=== PATIENT | male | born 1965 | race Caucasian/White ===

== ENCOUNTER → 2017-04-12 10:00 | Day surgery (SDC) | payer OTHER, SELFPAY ==
[2017-04-11 08:41] VITALS: BMI 32.0
[2017-04-12 10:38] LABS: Hematocrit 37.7 % (40-54); Hemoglobin 11.9 g/dl (13.0-16.5); Mean Corp Hgb Conc 31.6 g/gl (32-36); Mean Corpuscular Hgb 29.8 pg (27.0-32.0); Mean Corpuscular Volume 94.3 fL (80-94); Mean Platelet Vol. 10.2 fl (6.2-12.0); Platelet Count 268 K/mm3 (150-450); RBC Distribution Width CV 14.9 % (11.6-14.6); RBC Distribution Width SD 49.5 fl (35.1-43.9); White Blood Count 7.8 K/mm3 (4.4-11.0)
[2017-04-12 10:51] LABS: Scan Indicated on CBC? Y/N NO
[2017-04-12 11:03] LABS: Anion Gap 12 (5-15); BUN 35 mg/dL (7-18); Calcium,Total 7.6 mg/dL (8.5-10.1); Chloride 95 mmol/L (98-107); Creatinine, Serum 8.85 mg/dL (0.70-1.30); EST Glomerular Filtration Rate 7 mL/min (>60); Est Glom Filt Rate - Afr Amer 8 mL/min (>60); Estimated Creatinine Clearance 10.31 ml/min; Glucose 85 mg/dL (74-106); Potassium 4.5 mmol/L (3.5-5.1); Sodium Level 136 mmol/L (136-145)
--- NOTE | 2017-04-12 11:55 | PCM.OPRPT ---
Problem List (1) Problem with dialysis access Status: Acute Qualifiers: Encounter type: initial encounter Qualified Code(s): T82.898A - Other specified complication of vascular prosthetic devices, implants and grafts, initial encounter Report of Operation Date of Procedure: 04/12/17 Pre-Operative Diagnosis: Diminished flow and increased bleeding right forearm radiocephalic arteriovenous fistula Post-Operative Diagnosis: Proximal forearm cephalic vein occlusion Surgery/Procedure Performed:: Right upper extremity fistulogram Description of Surgical Findings:: 51-year-old gentleman was taken to the special procedures lab. He was placed on the table. 50 mcg fentanyl and 2 mg of Versed were given as intravenous sedation. The right extremity was sterilely prepped and draped. I performed ultrasound demonstrating the arterial anastomosis and proximal portion of the fistula appeared to be widely patent. There appeared to be a problem though with the outflow just distal to an aneurysmal segment of the vein. And so I used ultrasound to inject 2% lidocaine in the more proximal portion of the fistula close to the arterial anastomosis. Did this antegrade with flow. An ultrasound was used to insert a micropuncture needle. Micropuncture wire inserted. 6 [place] Citizen short sheath dilator was inserted. Then using Isovue contrast fistulogram was obtained of the forearm upper arm and chest area. Having achieved that I felt that there was not an endovascular treatment and so the sheath was removed and 2 4-0 nylon sutures were used for hemostasis. He tolerated the procedure well. Fistulogram demonstrates patient has a right forearm radiocephalic arteriovenous fistula. 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 Proximal to that area of aneurysmal change the hoh cephalic vein is completely occluded. The fistula is remaining patent via collateral flow to a more dominant vein on the dorsal aspect of the right forearm. This is present throughout the mid and more proximal forearm and there is excellent upper arm outflow. The vein is not present more distally on the dorsal forearm. There is 50% stenosis of the right innominate. Impression I believe that this patient would be best assisted by revision of the right forearm AV fistula. I propose that the now partially matured vein on the dorsal aspect of the forearm be transposed over to the cephalic vein just proximal to the aneurysm. This would allow the aneurysm to be excluded. I would be able to utilize the length of the more distal forearm cephalic vein. There would then be good outflow and access could still be achieved slightly more dorsally on the forearm. As this vein is already partially matured a lesser amount of maturation time would be required. Transposition would be needed. Unfortunately while awaiting maturation he would need to have tunneled dialysis catheters placed. At age 51 I do not recommend completely canceling out this fistula and creating a new one in the upper arm or opposite upper extremity. I believe that the venous structures in the forearm can be utilized to help salvage a more long-term access. We will schedule and proceed at his discretion Maximino Nayak M.D., F.A.C.S.
== END ==
PROVIDERS: Family Provider Internal Medicine; PCP Internal Medicine; Visit Provider Surgery
DX: T82.590A Other mechanical complication of surgically created arteriovenous fistula, initial encounter (principal); Z87.891 Personal history of nicotine dependence; Z79.899 Other long term (current) drug therapy; N18.5 Chronic kidney disease, stage 5
CPT/HCPCS: 36415; 36901; 76937; 80048; 85027; 99152; 99153; Q9967; C1769

== ENCOUNTER 2017-05-10 05:37 | Day surgery (SDC) | payer OTHER, SELFPAY ==
[2017-05-10] VITALS (8 sets, daily range): BP systolic 104–129; BP diastolic 65–94; PULSE 65–78; RESP 16–18; TEMP 36.1–36.8; O2SAT 92–99; BMI 31.8
--- NOTE | 2017-05-10 05:47 | EKG12_ITS ---
Test Reason : SB Blood Pressure : / mmHG Vent. Rate : 075 BPM Atrial Rate : 075 BPM P-R Int : 156 ms QRS Dur : 104 ms QT Int : 430 ms P-R-T Axes : 074 -03 042 degrees QTc Int : 480 ms Normal sinus rhythm Prolonged QT Abnormal ECG No previous ECGs available Confirmed by TAMY CULVER, KATHLEEN ([id number]), video effects editor LINDSAY COPPOLA ([id number]) on 05/12/2017 2:57:47 PM Referred By: Maximino Nayak Confirmed By:KATHLEEN MORELOS MD
--- NOTE | 2017-05-10 07:14 | PCM.DC.FIST ---
Discharge Diet: Renal Diet Discharge Activity: May Not Drive - for 2-3 days or while taking narcotic pain medications., May Not Shower Lifting Restrictions: 5 pounds Keep extremity elevated above heart level: - - Keep arm elevated above the heart level for 3 days. Additional Activity Instructions:: Exercise hand vigorously with a stress ball. Call your doctor if your incision/area has: Continuous Slow Oozing, Sudden Increased Bleeding - apply pressure and call your doctor., Increased Pain/ Swelling, Increased Redness, Foul Smelling Discharge Call your doctor if you observe: Fever of 101 or Higher Suture Line Care: Avoid Pulling/Pushing, Avoid Pinching/Bending Cleanse incision/area with: Keep Dressing Clean & Dry Additional Dressing/Incision Instructions:: Elevate your right arm for comfort. Please keep your hemodialysis catheter and a right upper extremity clean and dry. You may not shower. Allergies/Adverse Reactions: Allergies isosorbide Allergy (Verified 05/08/17 10:19) Unknown Penicillins [PCN] Allergy (Verified 05/08/17 10:19) Unknown Medications to take at Discharge cinacalcet 60 mg tablet 120 mg PO QDAY 03/13/17 sevelamer carbonate 800 mg tablet 800 mg PO TID 03/13/17 vitamin B complex and vitamin C no.20-folic acid 1 mg capsule 1 cap PO QDAY 03/13/17 Hydrocodone Bitart/Apap 5-325 [[place] 5MG-325MG] 1 tablet PO Q6H PRN PRN 3 Days #6 tablet 05/10/17 The following prescriptions were given: Hydrocodone Bitart/Apap 5-325 [[place] 5MG-325MG] 1 tablet PO Q6H PRN PRN 3 Days #6 tablet PRN Reason: Pain Primary Care Physician: Emily Kelley [Primary Care Provider] - Please Follow Up With: Maximino Nayak MD - [phone] When: Call to make an appointment for suture removal and follow up in 1 week.
[2017-05-10] MEDS: Clindamycin 900 MG/50 ML BAG 75 MG IV (07:15)
--- NOTE | 2017-05-10 07:24 | DCINST_ITS ---
Discharge Diet: Renal Diet Discharge Activity: May Not Drive - for 2-3 days or while taking narcotic pain medications., May Not Shower Lifting Restrictions: 5 pounds Keep extremity elevated above heart level: - - Keep arm elevated above the heart level for 3 days. Additional Activity Instructions:: Exercise hand vigorously with a stress ball. Call your doctor if your incision/area has: Continuous Slow Oozing, Sudden Increased Bleeding - apply pressure and call your doctor., Increased Pain/ Swelling, Increased Redness, Foul Smelling Discharge Call your doctor if you observe: Fever of 101 or Higher Suture Line Care: Avoid Pulling/Pushing, Avoid Pinching/Bending Cleanse incision/area with: Keep Dressing Clean & Dry Additional Dressing/Incision Instructions:: Elevate your right arm for comfort. Please keep your hemodialysis catheter and a right upper extremity clean and dry. You may not shower. Allergies/Adverse Reactions: Allergies isosorbide Allergy (Verified 05/08/17 10:19) Unknown Penicillins [PCN] Allergy (Verified 05/08/17 10:19) Unknown Medications to take at Discharge cinacalcet 60 mg tablet 120 mg PO QDAY 03/13/17 sevelamer carbonate 800 mg tablet 800 mg PO TID 03/13/17 vitamin B complex and vitamin C no.20-folic acid 1 mg capsule 1 cap PO QDAY Hydrocodone Bitart/Apap 5-325 [[place] 5MG-325MG] 1 tablet PO Q6H PRN PRN 3 Days # 6 tablet 05/10/17 The following prescriptions were given: Hydrocodone Bitart/Apap 5-325 [[place] 5MG-325MG] 1 tablet PO Q6H PRN PRN 3 Days # 6 tablet PRN Reason: Pain Primary Care Physician: Emily Kelley [Primary Care Provider] - Please Follow Up With: Maximino Nayak MD - [phone] When: Call to make an appointment for suture removal and follow up in 1 week.
[2017-05-10] MEDS: Bupivacaine Mpf 0.5% 30 ML VIAL (07:35)
[2017-05-10] MEDS: Heparin 10,000 UNITS/10 ML Vial 10000 UNITS (07:55)
--- NOTE | 2017-05-10 09:17 | RAD_ITS ---
STUDY: X-RAY CHEST REASON FOR EXAM: Male, 51 years old. Line placement. TECHNIQUE: Single AP portable view of the chest. COMPARISON: None. FINDINGS: Dialysis catheter terminates in the mid SVC with no pneumothorax. The lungs are clear and expanded. There is no demonstrated pleural abnormality. Normal size heart. Normal mediastinum and daniella. Normal visualized pulmonary arteries. Normal visualized aortic arch and descending thoracic aorta. Normal visualized thoracic spine. Normal visualized ribs, clavicles, and shoulders. There is no demonstrated abnormality of the visualized soft tissue structures of the upper abdomen. RAD/Chest 1 View (Portable) IMPRESSION: No pneumothorax status post dialysis line placement. No evidence for acute chest disease. Electronically Signed: Sarkis Weinberg MD at 11:09 EDT , Service support ,
--- NOTE | 2017-05-10 09:24 | OP.PCM_ITS ---
Problem List (1) Problem with dialysis access Status: Acute Qualifiers: Encounter type: initial encounter Report of Operation Date of Procedure: 05/10/17 Pre-Operative Diagnosis: Difficulties with right forearm radiocephalic arteriovenous fistula venous outflow and aneurysmal change Post-Operative Diagnosis: Same Surgery/Procedure Performed:: Right internal jugular tunneled 19 cm pre-curved palindrome catheter. Transposition right forearm cephalic vein to proximal fistula arteriovenous fistula creation Description of Surgical Findings:: Informed consent was obtained. 51-year-old gentleman was taken out from placement the table. Initial attempts were made to use monitored anesthesia care but the patient became very agitated so it was converted to a general anesthetic. Mycin 900 mg were given intravenously preoperatively. The right neck was sterilely prepped draped. Ultrasound was used to identify the right internal jugular vein. Under ultrasound guidance 1% lidocaine mixed 50-50 with 0.5% Marcaine was used as local anesthetic. A total 10 cc was used. Micropuncture needle was used to gain access to the right internal jugular vein followed by Seldinger wire advancement. Local was instilled down upon the chest wall. An exit site was selected. The 19 cm pre-curved palindrome catheter was tunneled from the chest to the neck site. The micropuncture sheath dilator was placed over the wire. Exchanged out for an 035 J-wire. Fluoroscopy demonstrated good position. Serial dilatation was performed. The sheath dilator was inserted. The dilator wire removed. The catheter was advanced to the sheath. The sheath was split leaving the catheter in good position and confirmed with fluoroscopy. The neck site was closed with interrupted 5-0 Vicryl subdermal stitch. The catheter was secured skin with interrupted 3-0 nylon. Telfa OpSite was applied to the neck. A silver type dressing was applied to the exit site. Followed by OpSite dressing. The catheters were irrigated with saline and then 2 cc of heparinized saline per channel. Counts were correct blood loss was minimal he tolerated that part of the procedure well. Now the right arm was exposed. It was prepped and draped. I utilized 1% lidocaine mixed 50-50 with 0.5 cM and 2 17 cc. I used ultrasound to map the accessory cephalic vein in the mid to dorsal forearm. The cephalic vein itself and become aneurysmal and had very occluded proximal forearm outflow. I made a longitudinal incision over the more dorsal vein and then I harvested the vein with careful tedious sharp and blunt dissection side branches were secured with hemoclips. After having adequate vein I then made a longitudinal incision over the previous fistula close to the radial arterial anastomosis. Circumferential dissection performed of the hypertrophied vein. I then created a tunnel and tunnel of the more dorsal vein closer to the radial aspect. There was a good positional lie. I was able to spatulated that vein at a point of branch point. Patient then received 9000 units of heparin. Peripheral vascular clamps were placed on the previous fistula proximally distally and 11 blade was used to make an arteriotomy in the very proximal portion of that vein. I then created an end-to-side anastomosis to the transposed vein and did this with a running 7- 0 Prolene. Very nice anastomosis felt to be achieved. Clamps were released hemostasis was immediately intact. There was excellent flow through the fistula. I then used a 0 Nurolon to tie off the old fistula distal to my anastomosis so as to occlude flow to the aneurysmal segments. That was successful. Now all of the new flow was through the new transposed vein. Hemostasis nicely intact. The wounds were closed with interrupted 3-0 Vicryl subdermal stitches and a running septic or 4 Monocryl. Steri-Strips Telfa and soft roll and Mauri wrap applied. Sponge instrument and needle counts were reported to the surgeon to be correct. Blood loss minimal. Drains none. Specimens none. He was taken to the recovery area with a viable hand without complication. Maximino Nayak M.D., F.A.C.S. Type of Anesthesia:: General Anesthesiologist: Paolo Brody
--- NOTE | 2017-05-10 12:16 | SUR.PHASEII ---
PT HASNO RIDE HOME- DR DIAS MADE AWARE- STATED PATIENT MAY GO HOME WHEN RECOVERY. CALL D NARDA- STATED PATIENT CAN NOT DRIVE HOME IT IS AGAINST [facility] POLICY- PT SIGNED HIMSELF OUT AMA
== END 2017-05-10 12:43 | disposition home or self-care (01) ==
LOC: SDC 05:39 → AC 05:39
PROVIDERS: Family Provider Internal Medicine; PCP Internal Medicine; Visit Provider Surgery
PROC: (CPT 36558; principal; 2017-05-10 07:00)
DX: T82.590A Other mechanical complication of surgically created arteriovenous fistula, initial encounter (principal); I12.0 Hypertensive chronic kidney disease with stage 5 chronic kidney disease or end stage renal disease; N18.6 End stage renal disease; Z99.2 Dependence on renal dialysis; K21.9 Gastro-esophageal reflux disease without esophagitis; Z79.899 Other long term (current) drug therapy; Z86.2 Personal history of diseases of the blood and blood-forming organs and certain disorders involving the immune mechanism; Z87.891 Personal history of nicotine dependence
CPT/HCPCS: 36558; 36832; 76937; 77001; 71045; 76000; 93005; J7120; C1750; J2405

== ENCOUNTER 2017-11-16 09:55 | Outpatient (CLI) | payer OTHER, SELFPAY ==
[2017-11-14 08:37] VITALS: BMI 30.4
[2017-11-16 10:09] LABS: Hemoglobin 13.1 g/dl (13.0-16.5); Mean Corpuscular Volume 90.9 fL (80-94); Mean Platelet Vol. 10.4 fl (6.2-12.0); Platelet Count 255 K/mm3 (150-450); RBC Distribution Width CV 15.3 % (11.6-14.6); RBC Distribution Width SD 50.5 fl (35.1-43.9); Red Blood Count 4.51 M/mm3 (4.6-6.2); Scan Indicated on CBC? Y/N NO; White Blood Count 7.2 K/mm3 (4.4-11.0)
[2017-11-16 10:28] LABS: Anion Gap 9 (5-15); BUN 37 mg/dL (7-18); BUN/Creat Ratio 4.1 RATIO (10-20); Calcium,Total 8.4 mg/dL (8.5-10.1); Chloride 98 mmol/L (98-107); EST Glomerular Filtration Rate 7 mL/min (>60); Est Glom Filt Rate - Afr Amer 8 mL/min (>60); Estimated Creatinine Clearance 10.03 ml/min; Glucose 88 mg/dL (74-106); Potassium 4.9 mmol/L (3.5-5.1); Sodium Level 132 mmol/L (136-145)
--- NOTE | 2017-11-16 11:46 | PCM.OPRPT ---
Problem List (1) Problem with dialysis access Status: Acute Qualifiers: Encounter type: subsequent encounter Qualified Code(s): T82.898D - Other specified complication of vascular prosthetic devices, implants and grafts, subsequent encounter Report of Operation Date of Procedure: 11/16/17 Pre-Operative Diagnosis: Diminished right upper extremity AV fistula flow Post-Operative Diagnosis: High grade right upper extremity venous stenosis Surgery/Procedure Performed:: Right upper extremity fistulogram with [id number] angioplasty and 6x2 cutting balloon angioplasty Description of Surgical Findings:: Timeout and informed consent was obtained. 52-year-old gent was taken to the special procedures lab. Was placed on the table. The right extremity sterilely prepped and draped. 50 mcg of fentanyl 1 mg of Versed were given as intravenous sedation. Ultrasound was performed close to the antecubital space. There is very poor venous flow. 2% lidocaine was instilled under ultrasound guidance. Micropuncture needle inserted and a very dark almost black blood was obtained to the point where I was not sure I was within the working fistula. I advanced a micropuncture wire and a 6 [place] sheath. I was able to advance an 035 angled Glidewire and that went down into the radial artery. I then placed a 4 [place] glide cath and using Isovue performed a fistulogram of the forearm. This demonstrated an area about 7 cm long of high-grade venous stenosis completely flow occluded by the catheter. So I removed the catheter. The sheath was flushed with heparinized saline. Initially I placed a 6 x 4 conquest balloon and balloon angioplasty was performed sit there was a focal area however within that long area of stenosis there is focal area of 95% stenosis did not release with the conquest. I remove the conquest having exchanged out for an 018 SV 5 wire. I then placed a 6 x 2 cutting balloon and balloon angioplasty was performed with that. Subsequent to that I did fistulogram there was suggestion of some thrombus within the proximal portion of the fistula the fistula did not appear to be working well at all. I injected 5000 units of heparin in to the fistula directly. At this point I feel that the patient likely has an unsalvageable event. The long area of venous stenosis likely was already leading to pre-occlusion I cannot resolve the stenosis. Further then attempts to declot the fistula would not be of benefit. U suture was placed of nylon the sheath was removed hemostasis was intact the patient was taken to recovery area. He will be observed. A fistula duplex exam of the upper arm will be achieved looking for vein mapping. The patient likely will require temporary catheter placement prior to complete fistula removal. Patient has a right forearm AV fistula. There is evidence of some flow still within a aneurysm adjacent to the main fistula. The main fistula has an area of high-grade venous stenosis which did not resolve with conquest or cutting balloon angioplasty. Maximino Nayak M.D., F.A.C.S.
--- NOTE | 2017-11-16 11:55 | OP.PCM_ITS ---
Problem List (1) Problem with dialysis access Status: Acute Qualifiers: Encounter type: subsequent encounter Qualified Code(s): T82.898D - Other specified complication of vascular prosthetic devices, implants and grafts, subsequent encounter Report of Operation Date of Procedure: 11/16/17 Pre-Operative Diagnosis: Diminished right upper extremity AV fistula flow Post-Operative Diagnosis: High grade right upper extremity venous stenosis Surgery/Procedure Performed:: Right upper extremity fistulogram with [id number] angioplasty and 6x2 cutting balloon angioplasty Description of Surgical Findings:: Timeout and informed consent was obtained. 52-year-old gent was taken to the special procedures lab. Was placed on the table. The right extremity sterilely prepped and draped. 50 mcg of fentanyl 1 mg of Versed were given as intravenous sedation. Ultrasound was performed close to the antecubital space. There is very poor venous flow. 2% lidocaine was instilled under ultrasound guidance. Micropuncture needle inserted and a very dark almost black blood was obtained to the point where I was not sure I was within the working fistula. I advanced a micropuncture wire and a 6 Citizen [place] sheath. I was able to advance an 035 angled Glidewire and that went down into the radial artery. I then placed a 4 [place] glide cath and using Isovue performed a fistulogram of the forearm. This demonstrated an area about 7 cm long of high-grade venous stenosis completely flow occluded by the catheter. So I removed the catheter. The sheath was flushed with heparinized saline. Initially I placed a 6 x 4 conquest balloon and balloon angioplasty was performed sit there was a focal area however within that long area of stenosis there is focal area of 95% stenosis did not release with the conquest. I remove the conquest having exchanged out for an 018 SV 5 wire. I then placed a 6 x 2 cutting balloon and balloon angioplasty was performed with that. Subsequent to that I did fistulogram there was suggestion of some thrombus within the proximal portion of the fistula the fistula did not appear to be working well at all. I injected 5000 units of heparin in to the fistula directly. At this point I feel that the patient likely has an unsalvageable event. The long area of venous stenosis likely was already leading to pre-occlusion I cannot resolve the stenosis. Further then attempts to declot the fistula would not be of benefit. U suture was placed of nylon the sheath was removed hemostasis was intact the patient was taken to recovery area. He will be observed. A fistula duplex exam of the upper arm will be achieved looking for vein mapping. The patient likely will require temporary catheter placement prior to complete fistula removal. Patient has a right forearm AV fistula. There is evidence of some flow still within a aneurysm adjacent to the main fistula. The main fistula has an area of high-grade venous stenosis which did not resolve with conquest or cutting balloon angioplasty. Maximino Nayak M.D., F.A.C.S.
--- NOTE | 2017-11-16 12:57 | VDUE_ITS ---
Reason For Study: Assess for possible AVF graft revision Right Arm Left Arm Failed AVF graft rt forearm. Left Cephalic Vein at the wrist measures .26 Right Cephalic Vein above antecub x .24 cm. measures .51 x .54 cm. Left Cephalic Vein in the forearm Right Cephalic Vein mid bicep measures .57 measures .27 x .27 cm. x .57 cm. Left Cephalic Vein below antecub Right Cephalic Vein at the shoulder measures .23 x .25 cm. measures .66 x .68 cm. Left Cephalic Vein above antecub Right Basilic Vein at the origin measures .24 x .25 cm. measures .57 x .58 cm. Left Cephalic Vein at mid bicep measures .26 Right Basilic Vein mid bicep measures .58 x .29 cm. x .57 cm. Left Cephalic Vein at the shoulder Right Basilic Vein above antecub measures .33 x .32 cm. measures .51 x .50 cm. Basilic vein at origin measures .49 x .47 Brachial artery - .57 x .57 cm with a cm. velocity of 85.0 cm/s Basilic vein at bicep measures .51 x .49 cm. Radial artery - .44 x .42 cm with a velocity Basilic vein above antecub measures .43 of 50.4 cm/s. x .41 cm. Brachial artery - .37 x .37 cm with a velocity of 69.8 cm/s Radial artery - .29 x .29 cm with a velocity of 47.1 cm/s. Interpretation Summary Patent and compressible right upper arm basilic and cephalic veins Patent and compressible left cephalic and basilic veins Adeqate bilateral radial and brachial arteries with normal flow. Thrombosed right forearm arteriovenous fistula Ordering Physician: Maximino Nayak Referring Physician: Maximino Nayak Performed By: Deepa Arias RVT ???
== END 2017-11-16 13:50 | disposition home or self-care (01) ==
PROVIDERS: Family Provider Internal Medicine; PCP Internal Medicine; Visit Provider Surgery
DX: T82.858A Stenosis of other vascular prosthetic devices, implants and grafts, initial encounter (principal); I87.1 Compression of vein; N18.9 Chronic kidney disease, unspecified; Z79.899 Other long term (current) drug therapy; Z87.891 Personal history of nicotine dependence
CPT/HCPCS: 36415; 36902; 76937; 80048; 85027; 93970; 99152; 99153; C1725; Q9967; C1769

== ENCOUNTER 2017-11-17 14:00 | Day surgery (SDC) | payer OTHER, SELFPAY ==
[2017-11-17 14:30] VITALS: BP 111/72; PULSE 73; RESP 16; TEMP 36.5; O2SAT 94; BMI 31.3
[2017-11-17] MEDS: Bupivacaine Mpf 0.5% 30 ML VIAL (16:38)
[2017-11-17] MEDS: Heparin 10,000 UNITS/10 ML Vial 10000 UNITS (17:00)
--- NOTE | 2017-11-17 17:03 | DCINST_ITS ---
Discharge Diet: Renal Diet Discharge Activity: May Not Drive - No driving for1 day, May Not Shower Lifting Restrictions: 10 pounds Call your doctor if your incision/area has: Continuous Slow Oozing, Sudden Increased Bleeding, Increased Pain/ Swelling, Increased Redness, Foul Smelling Discharge Allergies/Adverse Reactions: Allergies isosorbide Allergy (Verified 11/14/17 08:38) Unknown Penicillins [PCN] Allergy (Verified 11/14/17 08:38) Unknown Primary Care Physician: Emily Kelley [Primary Care Provider] - Test Results: Test results from this visit will be discussed in further detail at your follow- up appointment, if applicable. Please Follow Up With: Maximino Nayak MD - [phone] When: Arrange with my office for fistula creation
[2017-11-17 17:08] VITALS: BP 111/72; BP 147/95; PULSE 72; RESP 16; TEMP 37; O2SAT 97
--- NOTE | 2017-11-17 17:09 | OP.PCM_ITS ---
Problem List (1) Problem with dialysis access Status: Acute Qualifiers: Encounter type: subsequent encounter Report of Operation Date of Procedure: 11/17/17 Pre-Operative Diagnosis: Thrombosed right forearm transposed cephalic vein to r adial artery AV fistula Post-Operative Diagnosis: Same Surgery/Procedure Performed:: Ultrasound-guided right internal jugular tunneled 19 cm pre-curved palindrome dialysis catheter placement Description of Surgical Findings:: Timeout informed consent was obtained. 52-year-old gent was taken the operating. He was placed on the table he received 900 mg of clindamycin intravenously. The right neck and chest were sterilely prepped and draped. 1% lidocaine mixed 50-50 with 0.5% Marcaine was used as a local anesthetic. Total of 15 cc was used. Ultrasound was used to identify the right internal jugular vein. Local was instilled. Micropuncture needle inserted. Micropuncture wire inserted. Micropuncture sheath inserted. 035 J-wire was inserted. Local was instilled down upon the chest wall. An appropriate exit site a stab incision was created. The 19 cm pre-curved palindrome catheter was tunneled from the chest to the neck. Serial dilatation was performed over the J-wire. Fluoroscopy demonstrated good positioning. The sheath dilator was placed over the wire. The wire and dilator were removed. The catheter was advanced to the sheath. The sheath was split. The catheter was positioned to be in a good curvilinear position. It aspirated easily. It was flushed with saline. What was then provided was routine heparin flush 100 units/cc. 2 cc per channel were injected while awaiting the 1000 unit/cc heparin. Then 2 cc of 1000 unit/cc heparin was injected per line. The catheter was secured skin with interrupted 3-0 nylon. The neck site was closed with interrupted 5-0 Vicryl subdermal stitch. Steri-Strips Telfa and OpSite dressing was applied to that site. A silver impregnated dressing was applied at the catheter exit site. Sponge instrument and needle counts were reported the surgeon be correct. Blood loss was minimal. He tolerated the procedure well was taken to the recovery area in satisfactory condition without apparent complication. Stat portable chest x-ray is pending. Specimens none. Drains none. Blood loss minimal. Maximino Nayak M.D., F.A.C.S. It is of additional note that during the monitored anesthesia care portion of the procedure the patient reacted with involuntary jerks and aggravated activity. The monitored anesthesia care medicines had to be stopped. The majority of the procedure that was performed with anesthesia monitoring and local anesthetic. The patient will need a redo creation of a AV fistula and it is planned to perform a right upper extremity transposed cephalic vein to brachial artery AV fistula in the near future. I will anticipate general anesthesia at that time. Type of Anesthesia:: Local MAC Anesthesiologist: Sisi Alvarez
--- NOTE | 2017-11-17 17:10 | RAD_ITS ---
STUDY: X-RAY CHEST REASON FOR EXAM: Male, 52 years old. Post hemodialysis catheter placement. TECHNIQUE: Single AP portable view of the chest. COMPARISON: Portable AP upright chest x-ray May 10, 2017. FINDINGS: A right-sided double-lumen hemodialysis catheter is again seen, although it is unclear if this is the same catheter as on the prior study. The catheter tip is in the superior vena cava. No pneumothorax. There is patchy density in right base consistent with subsegmental volume loss and crowding. The left lung is clear and expanded. There is no demonstrated pleural abnormality. Normal size heart. Normal mediastinum and daniella. Normal visualized pulmonary arteries. There is stable atherosclerotic calcification of the aortic arch. Normal visualized thoracic spine. There is stable widening of the bilateral acromioclavicular joint spaces. There is no demonstrated abnormality of the visualized soft tissue structures of the upper abdomen. RAD/Chest 1 View (Portable) IMPRESSION: 1. Right hemodialysis catheter tip is in the superior vena cava. No pneumothorax. 2. Patchy subsegmental volume loss and crowding in the right base. Electronically Signed: Trae Limon MD at 17:30 EDT , Service support ,
[2017-11-17 17:13] VITALS: BP 111/72; BP 150/92; PULSE 72; RESP 16; O2SAT 98
[2017-11-17 17:18] VITALS: BP 111/72; BP 141/78; PULSE 76; RESP 16; O2SAT 97
[2017-11-17 17:24] VITALS: BP 111/72; BP 148/60; PULSE 76; RESP 16; TEMP 37.1; O2SAT 98
[2017-11-17 17:45] VITALS: BP 111/72
== END 2017-11-17 17:46 | disposition home or self-care (01) ==
LOC: SDC 14:02 → AC 14:02
PROVIDERS: Family Provider Internal Medicine; PCP Internal Medicine; Referring Provider Surgery; Visit Provider Surgery
PROC: (CPT 36558; principal; 2017-11-17 15:45)
DX: T82.868A Thrombosis due to vascular prosthetic devices, implants and grafts, initial encounter (principal); I12.0 Hypertensive chronic kidney disease with stage 5 chronic kidney disease or end stage renal disease; N18.6 End stage renal disease; Z99.2 Dependence on renal dialysis; G47.30 Sleep apnea, unspecified; K21.9 Gastro-esophageal reflux disease without esophagitis; Z79.899 Other long term (current) drug therapy; Z86.2 Personal history of diseases of the blood and blood-forming organs and certain disorders involving the immune mechanism; Z87.891 Personal history of nicotine dependence
CPT/HCPCS: 00532; 36558; 76937; 77001; 71045; 76000; C1750

== ENCOUNTER → 2017-12-04 12:59 | Outpatient (CLI) | payer OTHER, SELFPAY ==
--- NOTE | 2017-12-04 13:00 | VDUE_ITS ---
Reason For Study: renal failure stage 4 Right Arm Left Arm Right cephalic vein is compressible. Left cephalic vein is compressible. Right Cephalic Vein at the shoulder Left Cephalic Vein at the shoulder measures .436 x .445 cm. measures .289 x .309 cm. Right Cephalic Vein mid bicep measures .474 Left Cephalic Vein at mid bicep x .446 cm. measures .180 x .169 cm. Right Cephalic Vein above antecub Left Cephalic Vein above antecub measures .453 x .449 cm. measures .184 x .197 cm. Failed AVF graft R forearm. Left Cephalic Vein below antecub Right basilic vein is compressible. measures .174 x .214 cm. Right Basilic Vein at the origin Left Cephalic Vein in the forearm measures .479 x .503 cm. measures .219 x .224 cm. Right Basilic Vein above antecub Left Cephalic Vein at the wrist measures .702 x .715 cm. measures .239 x .249 cm. Right Basilic Vein below antecub Left basilic vein is compressible. measures .378 x .362 cm. Basilic vein at origin measures .740 x .734 Right Basilic Vein in the forearm cm. measures .383 x .362 cm. Basilic vein above antecub measures .478 Right Basilic Vein at the wrist x .473 cm. measures .333 x .350 cm. Basilic vein below antecub measures .358 Brachial A measures .626 x .682 cm. x .348 cm. Brachial A 60.1 cm/s. Basilic vein in the forearm measures .269 Radial A measures .299 x .300 cm x .274 cm. Radial A 93.8 cm/s. Basilic vein at the wrist measures .318 x .313 cm. Brachial A measures .468 x .449 cm. Brachial A 86.8 cm/s. Radial A measures .195 x .184 cm Radial A 92.6 cm/s. Interpretation Summary Patent and compressible bilateral upper extremity cephalic and basilic veins with dimensions as noted. Left upper arm cephalic vein small Rigth forearm cephalic vein occluded Dominant right forearm basilic vein. Small left radial artery Good flow bilateral brachial arteries. Ordering Physician: Maximino Nayak Performed By: Tomas Kumar RVT ???
== END ==
PROVIDERS: Family Provider Internal Medicine; PCP Internal Medicine; Visit Provider Surgery
DX: T82.898A Other specified complication of vascular prosthetic devices, implants and grafts, initial encounter (principal); N18.4 Chronic kidney disease, stage 4 (severe); I82.611 Acute embolism and thrombosis of superficial veins of right upper extremity
CPT/HCPCS: 93970

== ENCOUNTER 2017-12-18 05:11 | Day surgery (SDC) | payer OTHER, SELFPAY ==
[2017-12-18] VITALS (7 sets, daily range): BP systolic 109–126; BP diastolic 67–81; PULSE 70–85; RESP 16–18; TEMP 36.4–37.7; O2SAT 92–97; BMI 30.9
--- NOTE | 2017-12-18 05:24 | EKG12_ITS ---
Test Reason : PRE OP Blood Pressure : / mmHG Vent. Rate : 082 BPM Atrial Rate : 082 BPM P-R Int : 154 ms QRS Dur : 104 ms QT Int : 408 ms P-R-T Axes : 081 009 084 degrees QTc Int : 476 ms Normal sinus rhythm Low voltage QRS (limb leads) Borderline ECG Confirmed by KAY CULVER, ELIZABETH ([id number]), brands editor LINDSAY COPPOLA ([id number]) on 12/21/2017 4:18:41 PM Referred By: Maximino Nayak Confirmed By:ELIZABETH VILLANUEVA MD
[2017-12-18 06:34] LABS: Hematocrit 33.2 % (40-54); Hemoglobin 10.6 g/dl (13.0-16.5); Mean Corp Hgb Conc 31.9 g/gl (32-36); Mean Corpuscular Hgb 29.3 pg (27.0-32.0); Mean Corpuscular Volume 91.7 fL (80-94); Mean Platelet Vol. 10.8 fl (6.2-12.0); Platelet Count 223 K/mm3 (150-450); RBC Distribution Width CV 15.5 % (11.6-14.6); RBC Distribution Width SD 49.5 fl (35.1-43.9); Red Blood Count 3.62 M/mm3 (4.6-6.2); White Blood Count 9.6 K/mm3 (4.4-11.0)
[2017-12-18 06:40] LABS: Scan Indicated on CBC? Y/N NO
[2017-12-18 06:46] LABS: Anion Gap 19 (5-15); BUN 74 mg/dL (7-18); BUN/Creat Ratio 6.5 RATIO (10-20); Calcium,Total 9.1 mg/dL (8.5-10.1); Chloride 84 mmol/L (98-107); EST Glomerular Filtration Rate 5 mL/min (>60); Est Glom Filt Rate - Afr Amer 6 mL/min (>60); Estimated Creatinine Clearance 7.99 ml/min; Glucose 92 mg/dL (74-106); Potassium 4.9 mmol/L (3.5-5.1); Sodium Level 134 mmol/L (136-145)
--- NOTE | 2017-12-18 07:05 | RAD_ITS ---
STUDY: X-RAY CHEST REASON FOR EXAM: Male, 52 years old. Post hemodialysis catheter placement. TECHNIQUE: Single AP portable view of the chest. COMPARISON: Comparison is made with prior study dated November 17, 2017. FINDINGS: A left-sided hemodialysis catheter as been placed. The tip is in the proximal portion of the superior vena cava. The previously seen right internal os catheter has been removed. EKG electrodes are seen. Mild degree of increased linear markings at the lung bases suggestive of a linear atelectasis and/or linear scarring. There is no demonstrated pleural abnormality. Normal size heart. Normal mediastinum and daniella. Normal visualized pulmonary arteries. There is atherosclerotic tortuosity of the aortic arch and descending thoracic aorta. There are diffuse degenerative changes of the visualized thoracic spine. Normal visualized ribs, clavicles, and shoulders. There is no demonstrated abnormality of the visualized soft tissue structures of the upper abdomen. RAD/CXR for Line Placement IMPRESSION: The tip of the left hemodialysis catheter is in the proximal portion of the superior vena cava. Mild increased markings at the lung bases suggests probably atelectasis and/or scarring. Electronically Signed: Pedro Brown MD at 10:38 EDT Tel [phone], Service support ,
--- NOTE | 2017-12-18 07:10 | DCINST_ITS ---
Discharge Diet: Renal Diet Discharge Activity: May Not Drive - for 2-3 days or while taking narcotic pain medications., May Not Shower, May Take a Tub Bath - in 5 days. Lifting Restrictions: 5 pounds Keep extremity elevated above heart level: - - Keep arm elevated above the heart level for 3 days. Additional Activity Instructions:: Exercise hand vigorously with a stress ball. Call your doctor if your incision/area has: Continuous Slow Oozing, Sudden Increased Bleeding - apply pressure and call your doctor., Increased Pain/ Swelling, Increased Redness, Foul Smelling Discharge Call your doctor if you observe: Fever of 101 or Higher Suture Line Care: Avoid Pulling/Pushing, Avoid Pinching/Bending Cleanse incision/area with: Keep Dressing Clean & Dry Additional Dressing/Incision Instructions:: You may change or remove your right arm dressing in 2 days. Exercise your right hand with a stress ball as frequently as possible to help the fistula mature Allergies/Adverse Reactions: Allergies isosorbide Allergy (Verified 12/15/17 08:54) Unknown Penicillins [PCN] Allergy (Verified 12/15/17 08:54) Unknown adhesive tape Adverse Reaction (Verified 12/15/17 08:55) Rash Medications to take at Discharge Sevelamer Carbonate [Renvela] 800 mg PO 4X/DAY 11/17/17 Ergocalciferol (Vitamin D2) [Drisdol] 50,000 unit PO MO 12/15/17 Folic Acid/Vit Bcomp,C [Renal Vitamin Tablet] 0.8 mg PO DAILY 12/15/17 Levothyroxine [Synthroid] 125 mcg PO DAILY 12/15/17 Hydrocodone Bitart/Apap 5-325 [[place] 5MG-325MG] 1 tablet PO Q6H PRN PRN 2 Days #6 tablet 12/18/17 The following prescriptions were given: Hydrocodone Bitart/Apap 5-325 [[place] 5MG-325MG] 1 tablet PO Q6H PRN PRN 2 Days #6 tablet PRN Reason: Pain Primary Care Physician: Emily Kelley [Primary Care Provider] - Test Results: Test results from this visit will be discussed in further detail at your follow- up appointment, if applicable. Please Follow Up With: Maximino Nayak MD - [phone] When: Call to make an appointment for suture removal and follow up in 2 weeks.
[2017-12-18] MEDS: Heparin 10,000 UNITS/10 ML Vial 10000 UNITS (08:20)
[2017-12-18] MEDS: Bupivacaine Mpf 0.5% 30 ML VIAL (08:20)
--- NOTE | 2017-12-18 09:22 | PCM.OPRPT ---
Problem List (1) Problem with dialysis access Status: Acute Qualifiers: Encounter type: subsequent encounter Report of Operation Date of Procedure: 12/18/17 Pre-Operative Diagnosis: Thrombosed right forearm radiocephalic arteriovenous fistula. Malfunctioning right internal jugular tunneled hemodialysis catheters Post-Operative Diagnosis: Same Surgery/Procedure Performed:: Placement of new 23 cm pre-curved left internal jugular tunneled palindrome dialysis catheters. Removal right internal jugular tunneled dialysis catheters. Creation right upper extremity brachial to cephalic arteriovenous fistula Description of Surgical Findings:: Timeout and informed consent was obtained. 52-year-old gent was taken out from placement table underwent general anesthesia due to his intolerance of monitored anesthesia care. Clindamycin 900 mg given intravenously preoperatively. The left neck was sterilely prepped and draped. Under ultrasound guidance a micropuncture needle was inserted in the left internal jugular vein followed by Seldinger wire advancement fluoroscopy demonstrated good position. Local was instilled down upon the chest wall. A 23 cm pre-curved palindrome catheter was tunneled from the chest to the neck. Micropuncture sheath was dose over the wire an 035 J-wire was inserted fluoroscopy demonstrated good position serial dilatation was performed. Sheath dilator was placed over the wire with careful fluoroscopic inspection. The dilator wire removed. The catheter was advanced through the sheath. The sheath was split. The catheter was positioned at the SVC atrial junction. The counterincision was closed interrupted 4-0 Vicryl subdermal stitch. Catheter was secured to the chest with interrupted 3-0 nylon. Silver impregnated dressing applied to the exit site and a Telfa OpSite to the neck site. The catheter was aspirated easily there were flushed with saline and then 2 cc per channel of heparinized saline. Counts correct blood loss minimal no apparent complication. Counts closed changed. The right upper extremity sterilely prepped draped. Ultrasound was used to map the cephalic vein. A oblique incision was made in the right antecubital space proximal to the antecubital crease. Sharp and blunt dissection was used to identify the cephalic vein at that level it was dissected free from multiple centimeters proximally as I then secured off side branches and elevated the vein in a transposition type technique. I dissected the vein free distal to the antecubital space. I then identified the brachial artery and circumferentially control that. The patient received 10,000 units of heparin. Peripheral vascular clamps were placed on the brachial artery and 11 blade was used to make an arteriotomy which was extended with Sifuentes scissors. The vein was ligated distally with a Hemoclip and then the vein was spatulated length. It flushed easily and a end-to-side anastomosis was created with running 7-0 Prolene. Several interrupted 7-0 Prolene sutures were required for hemostasis. There was an excellent pulse thrill and bruit within the fistula at the completion with a good superficial positional lie. The wound was closed the deep layer of interrupted 3-0 Vicryl. Skin edges proximate running septic or 4-0 Monocryl. Steri-Strips Telfa OpSite dressings applied. Attention was drawn to the right neck. It was prepped. A counter incision was made over the cuff the cuff was released the catheter was withdrawn from the neck with continuous pressure and held upon the tunnel site. The counterincision was closed with interrupted 3-0 Vicryl subdermal stitch. Sterile dressings applied. Throughout the procedure 1% lidocaine mixed 50-50 with 0.5% Marcaine was used as a local anesthetic. A total of 20 cc was used. Sponge and instrument and needle count were reported to the surgeon be correct. Blood loss was quite minimal. Specimens none. Drains none. He was taken to the recovery area in satisfactory condition without apparent complication. Stat portal chest x-ray is pending. Maximino Nayak M.D., F.A.C.S. Type of Anesthesia:: General Anesthesiologist: Kelly Aj
--- NOTE | 2017-12-18 09:28 | OP.PCM_ITS ---
Problem List (1) Problem with dialysis access Status: Acute Qualifiers: Encounter type: subsequent encounter Report of Operation Date of Procedure: 12/18/17 Pre-Operative Diagnosis: Thrombosed right forearm radiocephalic arteriovenous f istula. Malfunctioning right internal jugular tunneled hemodialysis catheters Post-Operative Diagnosis: Same Surgery/Procedure Performed:: Placement of new 23 cm pre-curved left internal jugular tunneled palindrome dialysis catheters. Removal right internal jugular tunneled dialysis catheters. Creation right upper extremity brachial to cephalic arteriovenous fistula Description of Surgical Findings:: Timeout and informed consent was obtained. 52-year-old gent was taken out from placement table underwent general anesthesia due to his intolerance of monitored anesthesia care. Clindamycin 900 mg given intravenously preoperatively. The left neck was sterilely prepped and draped. Under ultrasound guidance a micro puncture needle was inserted in the left internal jugular vein followed by Seldinger wire advancement fluoroscopy demonstrated good position. Local was instilled down upon the chest wall. A 23 cm pre-curved palindrome catheter was tunneled from the chest to the neck. Micropuncture sheath was dose over the wire an 035 J-wire was inserted fluoroscopy demonstrated good position serial dilatation was performed. Sheath dilator was placed over the wire with careful fluoroscopic inspection. The dilator wire removed. The catheter was advanced through the sheath. The sheath was split. The catheter was positioned at the SVC atrial junction. The counterincision was closed interrupted 4-0 Vicryl subdermal stitch. Catheter was secured to the chest with interrupted 3-0 nylon. Silver impregnated dressing applied to the exit site and a Telfa OpSite to the neck site. The catheter was aspirated easily there were flushed with saline and then 2 cc per channel of heparinized saline. Counts correct blood loss minimal no apparent complication. Counts closed changed. The right upper extremity sterilely prepped draped. Ultrasound was used to map the cephalic vein. A oblique incision was made in the right antecubital space proximal to the antecubital crease. Sharp and blunt dissection was used to identify the cephalic vein at that level it was dissected free from multiple centimeters proximally as I then secured off side branches and elevated the vein in a transposition type technique. I dissected the vein free distal to the antecubital space. I then identified the brachial artery and circumferentially control that. The patient received 10,000 units of heparin. Peripheral vascular clamps were placed on the brachial artery and 11 blade was used to make an arteriotomy which was extended with Sifuentes scissors. The vein was ligated distally with a Hemoclip and then the vein was spatulated length. It flushed easily and a end-to-side anastomosis was created with running 7-0 P rolene. Several interrupted 7-0 Prolene sutures were required for hemostasis. There was an excellent pulse thrill and bruit within the fistula at the completion with a good superficial positional lie. The wound was closed the deep layer of interrupted 3-0 Vicryl. Skin edges proximate running septic or 4- 0 Monocryl. Steri-Strips Telfa OpSite dressings applied. Attention was drawn to the right neck. It was prepped. A counter incision was made over the cuff the cuff was released the catheter was withdrawn from the neck with continuous pressure and held upon the tunnel site. The counterin cision was closed with interrupted 3-0 Vicryl subdermal stitch. Sterile dressings applied. Throughout the procedure 1% lidocaine mixed 50-50 with 0.5% Marcaine was used as a local anesthetic. A total of 20 cc was used. Sponge and instrument and needle count were reported to the surgeon be correct. Blood loss was quite minimal. Specimens none. Drains none. He was taken to the recovery area in satisfactory condition without apparent complication. Stat portal chest x-ray is pending. Maximino Nayak M.D., F.A.C.S. Type of Anesthesia:: General Anesthesiologist: Kelly Aj
[2017-12-18] MEDS: Acetaminophen 325 MG Tablet 650 MG PO (12:26)
--- NOTE | 2017-12-18 12:30 | SUR.PHASEII ---
instructed pt that he would not be allowed to leave by himself after surgery. Instructed him that he would to need have someone pick him up and drive him home. At first pt stated that he did not have anyone that could come get him, but then he stated that a friend was coming to get him. Informed patient that friend would need to come into the hospital so that staff could see them to ensure that he was being truthful. Patient voiced understanding.
--- NOTE | 2017-12-18 13:55 | SUR.PHASEII ---
this nurse escorted pt via wheelchair to friends car and placed pt in the front seat of friends car.
== END 2017-12-18 13:55 | disposition home or self-care (01) ==
LOC: SDC 05:12 → AC 05:13
PROVIDERS: Family Provider Internal Medicine; PCP Internal Medicine; Referring Provider Surgery; Visit Provider Surgery
PROC: (CPT 36558; principal; 2017-12-18 07:00)
PROC: (CPT 36558; 2017-12-18 07:00)
DX: T82.868A Thrombosis due to vascular prosthetic devices, implants and grafts, initial encounter (principal); T82.898D Other specified complication of vascular prosthetic devices, implants and grafts, subsequent encounter; I12.0 Hypertensive chronic kidney disease with stage 5 chronic kidney disease or end stage renal disease; N18.6 End stage renal disease; Z99.2 Dependence on renal dialysis; R73.03 Prediabetes; E78.00 Pure hypercholesterolemia, unspecified; G47.30 Sleep apnea, unspecified; Z79.899 Other long term (current) drug therapy; Z86.2 Personal history of diseases of the blood and blood-forming organs and certain disorders involving the immune mechanism; Z87.891 Personal history of nicotine dependence
CPT/HCPCS: 36558; 36589; 36821; 77001; 71045; 76000; 80048; 85027; 93005; J2405

== ENCOUNTER 2017-12-27 09:36 | Day surgery (SDC) | payer OTHER, SELFPAY ==
[2017-12-27 10:21] VITALS: BP 138/78; PULSE 76; RESP 16; TEMP 37.6; O2SAT 95; BMI 32.4
--- NOTE | 2017-12-27 11:28 | DCINST_ITS ---
Discharge Diet: Renal Diet Discharge Activity: May Not Shower Lifting Restrictions: 10 pounds Call your doctor if your incision/area has: Continuous Slow Oozing, Sudden Increased Bleeding, Increased Pain/ Swelling, Increased Redness, Foul Smelling Discharge Call your doctor if you observe: Fever of 101 or Higher Suture Line Care: Avoid Pulling/Pushing, Avoid Pinching/Bending Additional Dressing/Incision Instructions:: Please keep the catheter site clean and dry. Dressing changes can be facilitated at the dialysis center. Allergies/Adverse Reactions: Allergies isosorbide Allergy (Verified 12/26/17 13:07) Unknown Penicillins [PCN] Allergy (Verified 12/26/17 13:07) Unknown adhesive tape Adverse Reaction (Verified 12/26/17 13:07) Rash Medications to take at Discharge Sevelamer Carbonate [Renvela] 800 mg PO 4X/DAY 11/17/17 Ergocalciferol (Vitamin D2) [Drisdol] 50,000 unit PO MO 12/15/17 Folic Acid/Vit Bcomp,C [Renal Vitamin Tablet] 0.8 mg PO DAILY 12/15/17 Levothyroxine [Synthroid] 125 mcg PO DAILY 12/15/17 Primary Care Physician: Emily Kelley [Primary Care Provider] - Test Results: Test results from this visit will be discussed in further detail at your follow- up appointment, if applicable. Please Follow Up With: Maximino Nayak MD - [phone] When: Surgical follow-up as scheduled for your fistula
[2017-12-27] MEDS: Bupivacaine Mpf 0.5% 30 ML VIAL (12:30)
[2017-12-27] MEDS: Heparin 10,000 UNITS/10 ML Vial 10000 UNITS (12:45)
--- NOTE | 2017-12-27 12:54 | PCM.OPRPT ---
Problem List (1) Problem with dialysis access Status: Acute Qualifiers: Encounter type: subsequent encounter Qualified Code(s): T82.898D - Other specified complication of vascular prosthetic devices, implants and grafts, subsequent encounter Report of Operation Date of Procedure: 12/27/17 Pre-Operative Diagnosis: Malfunction newly placed left internal jugular tunneled dialysis catheter Post-Operative Diagnosis: Same Surgery/Procedure Performed:: Removal left internal jugular tunneled dialysis catheter placement right internal jugular 23 cm. Palindrome dialysis catheter Description of Surgical Findings:: Timeout informed consent was obtained. Brad was taken to the operating placement table underwent general anesthesia because of inability to tolerate monitored anesthesia care. Clindamycin 900 mg were given intravenously. The right neck was sterilely prepped draped. Ultrasound was performed. The right internal jugular vein identified. 0.5% Marcaine was instilled. Under ultrasound guidance micropuncture needle was inserted in the right internal jugular vein but I could not get wire advancement so that I exchanged out to the standard singlewall puncture needle with a 035 J-wire then a micropuncture sheath and I then switched to an 035 angled Glidewire was able to get access through an area of stenosis of the right internal jugular vein. I confirmed with fluoroscopy positioning of the right superior vena cava atrium and ventricle. I tunneled the 23 cm catheter from the chest to the neck site serial dilatation was performed of the standard J-wire and then the sheath dilator was inserted somewhat snug suggesting persistent stenosis catheter was advanced through the sheath the sheath was split the catheter was positioned at the SVC atrial junction it seemed to aspirate better from one channel than from the other channel but despite further attempts to reposition at the neck I could not get a more comfortable position. Flushed with saline and heparinized saline 2 cc per channel. The counterincision was closed interrupted 5-0 Vicryl. Secured to the skin with 3-0 nylon. Gelfoam was applied followed by dressings. The grafts catheter on the left was addressed. I remove the nylon suture with gentle pressure was able to remove that catheter. Sterile dressings were applied Impression upon looking at the chest x-ray and fluoroscopy the left IJ catheter which felt to be now malfunctioning was in absolutely perfect position based upon imaging. It was removed. New catheter was placed on the right. It also has its tip seemingly in the correct position. Specimens none. Drains none. Blood loss minimal. Maximino Nayak M.D., F.A.C.S. Type of Anesthesia:: General Anesthesiologist: Kelly Aj
[2017-12-27 13:11] VITALS: BP 111/72; BP 138/78; PULSE 83; RESP 15; TEMP 36.6; O2SAT 95
[2017-12-27 13:15] VITALS: BP 113/73; BP 138/78; PULSE 86; RESP 16; O2SAT 91
[2017-12-27 13:30] VITALS: BP 111/76; BP 138/78; PULSE 81; RESP 16; O2SAT 93
[2017-12-27 13:45] VITALS: BP 116/68; BP 118/62; BP 138/78; PULSE 81; PULSE 82; RESP 16; TEMP 36.3; TEMP 37; O2SAT 94; O2SAT 95
--- NOTE | 2017-12-27 14:05 | RAD_ITS ---
STUDY: X-RAY CHEST REASON FOR EXAM: Male, 52 years old. Hemodialysis catheter placement. TECHNIQUE: Single AP portable view of the chest. COMPARISON: Comparison is made with prior study dated December 18, 2017. FINDINGS: The right-sided hemodialysis catheter as been removed. A new right-sided dialysis catheter has been placed with the tip in the proximal superior vena cava. Benign with evidence of increased bilateral perihilar markings. This may represent atelectasis. Follow-up is recommended. There is no demonstrated pleural abnormality. Normal size heart. Normal mediastinum and daniella. Normal visualized pulmonary arteries. There is atherosclerotic calcification of the aortic arch with tortuosity. There are diffuse degenerative changes of the visualized thoracic spine. Normal visualized ribs, clavicles, and shoulders. There is no demonstrated abnormality of the visualized soft tissue structures of the upper abdomen. RAD/CXR for Line Placement IMPRESSION: Status post right hemodialysis catheter placement. The tip is in the proximal portion of superior vena cava. Increased bilateral perihilar markings. Follow-up is recommended. Electronically Signed: Pedro Brown MD at 15:01 EST Tel [phone], Service support ,
--- NOTE | 2017-12-27 14:42 | SUR.PHASEII ---
Patient instructed to call his ride and he states he is in the parking lot; I told him we would have to see his friend at the pickup area, and he said he would just walk out to his car. I then instructed him he would need to call his friend to come into his room prior to discharge, patient states he does not have a phone.
[2017-12-27 16:15] VITALS: BP 120/71; BP 138/78; PULSE 81; RESP 16; TEMP 37.1; O2SAT 95
--- NOTE | 2017-12-27 17:09 | SUR.PHASEII ---
PATIENT COMES TO NURSE'S STATION STATING FRIEND HAS ARRIVED TO DRIVE PATIENT HOME. PATIENT WHEELED TO MAIN ENTRANCE BY JANUARY GUTHRIE, WHO ASSISTED PATIENT INTO FRIEND'S CAR.
== END 2017-12-27 17:03 | disposition home or self-care (01) ==
LOC: SDC 10:23 → AC 10:46
PROVIDERS: Family Provider Internal Medicine; PCP Internal Medicine; Referring Provider Surgery; Visit Provider Surgery
PROC: (CPT 36558; principal; 2017-12-27 12:05)
DX: T82.41XA Breakdown (mechanical) of vascular dialysis catheter, initial encounter (principal); I12.0 Hypertensive chronic kidney disease with stage 5 chronic kidney disease or end stage renal disease; N18.6 End stage renal disease; Z99.2 Dependence on renal dialysis; E78.00 Pure hypercholesterolemia, unspecified; F17.290 Nicotine dependence, other tobacco product, uncomplicated; Z79.899 Other long term (current) drug therapy; Z86.2 Personal history of diseases of the blood and blood-forming organs and certain disorders involving the immune mechanism
CPT/HCPCS: 36558; 36589; 76937; 77001; 71045; 76000; C1769; J2405

== ENCOUNTER → 2018-05-02 13:38 | Outpatient (CLI) | payer OTHER, SELFPAY ==
[2018-05-02 12:47] VITALS: BMI 32.4
[2018-05-02 13:55] LABS: Absolute Lymphocyte Count 2.79 X10^3/ul (0.83-4.51); Absolute Neutrophil Count 3.7 X10^3/uL (2.0-7.7); Basophil# 0.09 X10^3/uL; Basophil% 1.2 % (0-1); Eosinophil# 0.37 X10^3/uL; Eosinophils% 5.1 % (0-5); Hematocrit 37.3 % (40-54); Hemoglobin 11.3 g/dl (13.0-16.5); Lymphocyte # 2.79 X10^3/ul (4.0); Lymphocyte % 38.3 % (19-41); Mean Corp Hgb Conc 30.3 g/gl (32-36); Mean Corpuscular Hgb 28.5 pg (27.0-32.0); Mean Platelet Vol. 10.4 fl (6.2-12.0); Monocyte# 0.35 X10^3/uL; Monocyte% 4.8 % (0-10); Neutrophil # 3.65 X10^3/uL (2.7-7.7); Neutrophil % 50.2 % (47-70); Platelet Count 268 K/mm3 (150-450); RBC Distribution Width CV 16.7 % (11.6-14.6); RBC Distribution Width SD 57.2 fl (35.1-43.9); Red Blood Count 3.97 M/mm3 (4.6-6.2); White Blood Count 7.3 K/mm3 (4.4-11.0)
[2018-05-02 14:00] LABS: POSITIVE COUNT NO; POSITIVE DIFFERENTIAL NO; POSITIVE MORPHOLOGY NO
[2018-05-02 14:24] LABS: Anion Gap 9 (5-15); BUN 46 mg/dL (7-18); BUN/Creat Ratio 5.7 RATIO (10-20); Chloride 97 mmol/L (98-107); Creatinine, Serum 8.04 mg/dL (0.70-1.30); EST Glomerular Filtration Rate 8 mL/min (>60); Est Glom Filt Rate - Afr Amer 9 mL/min (>60); Glucose 83 mg/dL (74-106); Potassium 5.7 mmol/L (3.5-5.1); Sodium Level 132 mmol/L (136-145)
== END ==
PROVIDERS: Family Provider Internal Medicine; PCP Internal Medicine; Referring Provider Surgery; Visit Provider Surgery
DX: T82.898A Other specified complication of vascular prosthetic devices, implants and grafts, initial encounter (principal)
CPT/HCPCS: 36415; 80048; 85025

== ENCOUNTER 2018-05-07 08:38 | Day surgery (SDC) | payer OTHER, SELFPAY ==
[2018-05-02 12:47] VITALS: BMI 32.4
[2018-05-07 08:55] VITALS: BMI 30.1
--- NOTE | 2018-05-07 11:07 | OP.PCM_ITS ---
Problem List (1) Problem with dialysis access Status: Acute Qualifiers: Encounter type: subsequent encounter Report of Operation Date of Procedure: 05/07/18 Pre-Operative Diagnosis: Diminished flow right upper extremity brachial to [facility] arteriovenous hemodialysis fistula Post-Operative Diagnosis: 70% erratic stenosis 4 cm of the proximal third of the fistula. Additional area of stenosis within 2 cm of the anastomosis Surgery/Procedure Performed:: Double access right upper extremity fistulogram with a 6 x 40 mm Powerflex angioplasty Description of Surgical Findings:: Timeout and informed consent was obtained. 52-year-old M was taken to the special procedure lab. Because he drove himself no IV sedative could be given. The right extremity was sterilely prepped draped. Initially I used ultrasound tries to identify the cephalic vein in the more cephalad portion of the right upper arm. The vein moderately deep. Took me 2% lidocaine and ultrasound guidance and then several times in order to gain access. Micropuncture needles were microwire inserted 6 [place] short sheath was inserted. 035 angled glide cath and Glidewire was placed in the brachial artery proximal anastomosis and official gram was obtained. This demonstrated that within 2 cm in the anastomosis there was a focal area of 60% narrowing. In the proximal third of the fissure was diffusely erratic area of about 4 cm of irregularity this was in more of the proximal third to mid third of the fistula. The patient received 5000 units of heparin after I got double access. I got access antegrade with flow closer to the antecubital space with a micropuncture needle micropuncture wire and a 6 [place] recent diarrhea. Then using an 035 Glidewire and a 6 x 40 mm Powerflex balloon balloon angioplasty of the mid and more proximal portion of the fascia was performed at the area of erratic 70% stenosis. End of the area of 6% stenosis in the proximal portion of the fistula. This was held for approximately 3 minutes for each inflation. After completion of final 50 g obtained now demonstrated dramatic improvement in those areas of stenosis. There was good central venous outflow without any central venous stenosis. The sheaths were removed U sutures of 4-0 nylon was placed there was good pulse thrill and bruit blood loss was minimal no apparent complication. It is of note that during the insufflation 5000 units of heparin was given intravenously because of the amount of treatment required. Conor Dubon demonstrates right extremity brachiocephalic AV fistula. Within 2 cm anastomosis degenerative 6% stenosis. And then in the proximal third to mid third of the fistula there is a area of erratic 70% stenosis over a 4 cm area. Both of these areas were adequately treated with angioplasty. There was good central venous outflow. Maximino Nayak M.D., F.A.C.S. Type of Anesthesia:: Local
== END 2018-05-07 13:13 | disposition home or self-care (01) ==
LOC: CLSP 08:38
PROVIDERS: Family Provider Internal Medicine; PCP Internal Medicine; Referring Provider Surgery; Visit Provider Surgery
DX: T82.858A Stenosis of other vascular prosthetic devices, implants and grafts, initial encounter (principal); N18.9 Chronic kidney disease, unspecified; F17.290 Nicotine dependence, other tobacco product, uncomplicated; Z79.899 Other long term (current) drug therapy
CPT/HCPCS: 36902; 76937; C1725; C1769; Q9967

== ENCOUNTER 2018-09-26 11:27 | Day surgery (SDC) | payer OTHER, SELFPAY ==
[2018-09-03 14:11] VITALS: BMI 29.9
--- NOTE | 2018-09-04 13:00 | HP_ITS ---
Intake Vital Signs 09/03/18 Height 5 ft 10 in 09/03/18 Weight: 209 lb 09/03/18 Body Mass Index (BMI) 29.9 09/03/18 Blood Pressure 94/65 09/03/18 Blood Pressure Location Rt brachial 09/03/18 Respiratory Rate 18 09/03/18 Pulse Rate 80 09/03/18 Pulse Source Monitor 09/03/18 Temperature 98.3 F 09/03/18 Pulse Ox 97 09/03/18 Oxygen Delivery Method room air 09/03/18 Body Mass Index (BMI) 30.1 Intake Visit Reasons: ACCESS FLOW/TROUBLE CANNULATING Chief Complaint: branch ligation Paper Supervisor Required: No Is patient in pain?: No Allergies isosorbide Allergy (Verified 09/03/18 13:52) Unknown Penicillins [PCN] Allergy (Verified 09/03/18 13:52) Unknown adhesive tape Adverse Reaction (Verified 09/03/18 13:52) Rash Medications Sevelamer Carbonate [Renvela] 800 mg PO 4X/DAY 11/17/17 [History Confirmed 09/03/18] Ergocalciferol (Vitamin D2) [Drisdol] 50,000 unit PO MO 12/15/17 [History Confirmed 09/03/18] Folic Acid/Vit B Complex and C [Renal Vitamin Tablet] 0.8 mg PO DAILY 12/15/17 [History Confirmed 09/03/18] Levothyroxine [Synthroid] 125 mcg PO DAILY 12/15/17 [History Confirmed 09/03/18] PFSH Medical History Transposition great arteries (Acute) Problem with dialysis access (Acute) Chronic kidney disease (Acute) Surgical History Hx of partial thyroidectomy (Acute) history AV fistula creation (Acute ~05/10/17) S/P dialysis catheter insertion (Acute) history av fistula creation right forearm (Acute ~09/04/13) Social History (Updated 09/04/18 @ 07:31 by Mercedes Morris PA-C) Smoking Status: Current some day smoker tobacco type: cigars per week: 1 alcohol intake: never substance use type: does not use HPI HPI HPI: HALLIE SALDAÑA, is a 53 M who presents to the office today for HPI HPI Surgical H&P: Yes HPI: HALLIE SALDAÑA, is a 53 M who presents to the office today for decreased flow rate of the right upper extremity AV fistula. Patient states within the last two weeks he has noted the dialysis center has been pulling clots out of the fistula once completed with treatment. He also notes they have infiltrated his fistula. Patient notes he has successfully completed each treatment. Patient's last intervention with Dr. Nayak was on 05/07/18. Findings included 70% erratic stenosis 4 cm of the proximal third of the fistula and within 2 cm of the anastomosis. A double access right upper extremity fistulogram with a 6 x 40 mm Powerflex angioplasty was performed. Treatment was successful. Patient denies having any recent hospitalizations or illnesses. Patient is not currently on any blood thinners. Patient dialyzes T, Th and Sat. ROS General General: Yes weight change and fatigue; no appetite, colon cancer, breast cancer or weakness HEENT HEENT: Yes swollen glands; no difficulty swallowing, eye injury, eye surgery or hoarseness Endo Endocrine: No thyroid disease, diabetes mellitus, thyroid cancer, Hair loss, heat intolerance or cold intolerance Skin Skin: No rash or changing moles Breast Breast: No left breast lump, right breast lump, nipple discharge, breast pain, abnormal mammogram, abnormal US or breast enlargement Musc Musculoskeletal: No back problems, arthritis, rheumatoid arthritis, gout or joint pain Cardio Cardiovascular: No murmur, pacemaker, heart disease, atrial fibrillation, high blood pressure, heart attack, heart stent, palpitations, shortness of breat with exertion or chest pain Psych Psychiatric: No depression, anxiety or hearing voices Resp Respiratory: No shortness of breath, No sleep apnea, No cough, No COPD, No asthma, No emphysema, No wheezing Gastro Gastrointestinal: No abdominal pain, No nausea or vomiting, No diarrhea, No constipation, No blood in stool, No acid reflux, No hemorrhoids, No ulcers, No gallbladder problem, No black,tarry stools [place] Hematologic: No blood thinners, No blood disorders, No bleeding, No anemia, No blood clots Neuro Neurologic: No weakness Exam Const General: cooperative, comfortable, no acute distress HENMT Head: normal to inspection Eyes General: appearance normal, both eyes and all related structures Neck Neck: normal visual inspection Chest Breast Palpation: No nipple discharge Resp Effort & Inspection: normal respiratory effort Cardio Rate: regular rate Rhythm: regular rhythm Heart Sounds: no murmurs GI Inspection: normal to inspection Palpation: soft Auscultation: normal bowel sounds Skin General: no rashes or lesions noted Neuro General: no focal motor deficits, CN's II-XI intact bilaterally Extrem General: normal to inspection Other: Right upper extremity fistula good pulse, diminished bruit and thrill in multiple areas. Psych Appearance: grossly normal Affect: normal affect Assessment & Plan Problems 1. Problem with dialysis access, subsequent encounter T87.279P Plan Dr. Nayak will plan to perform a right upper extremity fistulogram. Last procedure double access was utilized. Procedure details, risks and benefits were reviewed with the patient. Patient has had the opportunity to ask and have questions answered. Patient verbally understands and agrees with the plan. Coding Level of Care Code Off vis,est,level 3 Diagnoses Problem with dialysis access, subsequent encounter T82.975O ??Encounter type: subsequent encounter 09/04/18 0731 <Electronically signed by Mercedes munguia PA-C> Date _ Mercedes Morris PA-C I have re-examined the patient. There are no clinical changes since date of exam.
[2018-09-25 10:37] VITALS: BMI 29.9
[2018-09-26 11:44] LABS: Hematocrit 34.1 % (40-54); Hemoglobin 10.8 g/dL (13.0-16.5); Mean Corp Hgb Conc 31.7 g/dL (32-36); Mean Corpuscular Hgb 31.1 pg (27.0-32.0); Mean Corpuscular Volume 98.3 fL (80-94); Mean Platelet Vol. 10.2 fl (6.2-12.0); Platelet Count 318 K/mm3 (150-450); RBC Distribution Width CV 15.6 % (11.6-14.6); RBC Distribution Width SD 55.6 fl (35.1-43.9); Red Blood Count 3.47 M/mm3 (4.6-6.2); White Blood Count 8.4 K/mm3 (4.4-11.0)
[2018-09-26 12:04] LABS: Anion Gap 7 (5-15); BUN 44 mg/dL (7-18); BUN/Creat Ratio 5.4 RATIO (10-20); Calcium,Total 9.3 mg/dL (8.5-10.1); Chloride 92 mmol/L (98-107); Creatinine, Serum 8.12 mg/dL (0.70-1.30); EST Glomerular Filtration Rate 7 mL/min (>60); Est Glom Filt Rate - Afr Amer 9 mL/min (>60); Estimated Creatinine Clearance 10.99 ml/min; Glucose 83 mg/dL (74-106); Potassium 5.2 mmol/L (3.5-5.1); Sodium Level 135 mmol/L (136-145)
--- NOTE | 2018-09-26 13:54 | PCM.OPRPT ---
Problem List (1) Problem with dialysis access Status: Acute Qualifiers: Encounter type: initial encounter Qualified Code(s): T82.898A - Other specified complication of vascular prosthetic devices, implants and grafts, initial encounter Report of Operation Date of Procedure: 09/26/18 Pre-Operative Diagnosis: Diminished flow right upper extremity brachiocephalic arteriovenous hemodialysis fistula Post-Operative Diagnosis: High-grade proximal fistula venous stenosis Surgery/Procedure Performed:: Right upper extremity fistulogram with 6 x 40 mm conquest angioplasty and 6 x 80 mm lutonixs drug-coated balloon angioplasty Description of Surgical Findings:: Timeout and informed consent was obtained. 53-year-old gent was taken to the special procedures lab. Once again he drove himself therefore negating ability to have IV sedation. The right upper extremity sterilely prepped draped. Ultrasound was used to access access the cephalic vein closer to the shoulder retrograde with flow. 2% lidocaine was instilled under ultrasound guidance. Micropuncture needle was inserted retrograde with flow. Micropuncture wire inserted. 6 [place] short sheath was inserted. An 035 angled Glidewire was used to advance a 4 [place] glide cath. This placed in the brachial artery proximal to the fistula. Isovue contrast was hand injected this demonstrated all of the contrast going down the brachial artery. The catheter was completely occluding the fistula. So the 035 angled Glidewire was replaced. The patient received 5000 units of heparin IV. A 6 x 40 mm ConQuest balloon was inserted. He did not tolerate that well so I then used another 10 cc of 2% lidocaine surrounding the proximal vein to provide for comfort. We were able to provide balloon angioplasty to the different locations with the 4 mm balloon overlapping each other. Was able to get complete expansion. Because of the tight rapid recurrence of the stenosis I elected to treat with a drug-coated balloon. We placed a 6 x 80 mm Lutonix balloon and inflated that to 12 ivan pressure for 2 minutes. The balloon was then removed and repeat imaging obtained now demonstrated complete resolution of the area of proximal venous stenosis. Completion fistulogram was obtained. There was evidence of spasm in the upper arm. At the glenohumeral joint there appeared to be relative narrowing. After carefully inspecting that and clinically and suspecting the fistula I felt that this was likely in part due to his spasm. I elected not to perform a double access on this occasion. The fistula does have a palpable thrill. Sheath was removed U suture 4-0 nylon was placed blood loss was minimal no apparent complication he tolerated the procedure well. Right upper extremity brachiocephalic arteriovenous fistula with such high-grade proximal fistula venous stenosis that the 4 [place] glide cath completely obstructed flow. Subsequent to the ConQuest and drug coated balloon angioplasty there is resolution of the proximal fistula venous stenosis. There is an area of relative stenosis at the glenohumeral joint. It is unclear whether this is spasm or potentially true obstruction. A conservative follow-up will be pursued as there is otherwise good central venous outflow. The patient will be seen back in my office in 2 weeks time particularly to inspect for any potential degree of venous outflow obstruction. Maximino Nayak M.D., F.A.C.S. Type of Anesthesia:: Local
== END 2018-09-26 14:50 | disposition home or self-care (01) ==
LOC: CLSP 11:29
PROVIDERS: Family Provider Internal Medicine; PCP Internal Medicine; Referring Provider Surgery; Visit Provider Surgery
DX: T82.898A Other specified complication of vascular prosthetic devices, implants and grafts, initial encounter (principal); N18.9 Chronic kidney disease, unspecified; F17.290 Nicotine dependence, other tobacco product, uncomplicated; Z79.899 Other long term (current) drug therapy
CPT/HCPCS: 36415; 36902; 76937; 80048; 85027; C2623; J7040; Q9967; C1725; C1769